=== PATIENT | female | born 1990 | race Hispanic/Latino ===

== ENCOUNTER 2016-10-29 23:02 | Emergency (ER) | payer OTHER ==
[~2016-10-29] VITALS: Ht 157.5 cm; Wt 79.4 kg
[2016-10-29 23:31] VITALS: BP 132/83
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
--- NOTE | 2016-10-30 00:31 | RADIOLOGY REPORT ---
EXAMINATION: XR TIBIA AND FIBULA, RIGHT CLINICAL INFORMATION: Evaluate for trauma. Right ankle pain and swelling. COMPARISON: No relevant prior imaging. TECHNIQUE: AP and lateral views of the right tibia and fibula were obtained. FINDINGS: The tibia and fibula are intact. There is no acute fracture or dislocation. Joint spaces are grossly maintained. Soft tissues are unremarkable. IMPRESSION: Unremarkable radiographs of the right tibia and fibula.
[2016-10-30] MEDS ORDERED: OXYCODONE HCL5 M1 PO ×2 (00:33)
== END 2016-10-30 00:50 ==
LOC: ERH 23:02
DX: S80.11XA Contusion of right lower leg, initial encounter (principal); Y09 Assault by unspecified means; Y92.9 Unspecified place or not applicable; Y93.9 Activity, unspecified
CPT/HCPCS: 73590-RT